=== PATIENT | female | born 1960 ===

== ENCOUNTER 2018-01-18 05:59 | Day surgery (SDC) | payer OTHER ==
[2018-01-14 09:21] VITALS: BMI 21.7
[2018-01-18] MEDS ORDERED: Lidocaine 2% w Epi 1:100,000 Inj IJ ONE ×2 (07:19→08:49)
[2018-01-18] MEDS ORDERED: Bupivacaine 0.25% Inj(30mL) ONE ×2 (07:19→07:25)
[2018-01-18] MEDS ORDERED: ceFAZolin IV 1 gm in Dextrose 1 GM/50 ML BAG IVPB ONE (07:19)
[2018-01-18] MEDS ORDERED: Lidocaine/Epinephrine 1% 1:100000 10 ML IJ ONE (07:34)
[2018-01-18] MEDS ORDERED: Midazolam 2 MG/2 ML VIAL ONE (07:35)
[2018-01-18] MEDS ORDERED: Propofol 10 mg/ml Inj (20 ML) ONE (07:35)
[2018-01-18] MEDS ORDERED: Phenylephrine 10 mg/ml Inj ONE (07:37)
[2018-01-18] MEDS ORDERED: ePHEDrine 50 mg/ml Inj ONE (07:37)
[2018-01-18] MEDS ORDERED: Rocuronium 10 mg/ml (5 ml) ONE (07:37)
[2018-01-18] MEDS ORDERED: Oxycodone/Acetaminophen 5/325 mg Tab PO PRN (09:04)
--- NOTE | 2018-01-18 09:04 | PCM.SURG1 ---
Surgeon's Initial Post Op Note - Surgeon's Notes Surgeon: Dr Cruz Instructional Manager: Dr English PGY3, Liliana CH Type of Anesthesia: General Endo Pre-Operative Diagnosis: cholelithiasis. gb polyp Operative Findings: see report Post-Operative Diagnosis: as above Operation Performed: robotic cholecystectomy Specimen/Specimens Removed: gallbladder Estimated Blood Loss: EBL {In ML}: 5 Blood Products Given: N/A Drains Used: No Drains Post-Op Condition: Good Date of Surgery/Procedure: 01/18/18 Time of Surgery/Procedure: 09:03
[2018-01-18] MEDS ORDERED: HYDROmorphone 0.5 mg/0.5 ml ISec IVP PRN (09:10)
[2018-01-18] MEDS ORDERED: HYDROmorphone 0.5 mg/0.5 ml ISec ONE (09:14)
[2018-01-18 11:13] VITALS: O2SAT 98
[2018-01-18 12:01] VITALS: RESP 16
[2018-01-18 12:23] VITALS: BP 149/75; PULSE 73; TEMP 97.8
--- NOTE | 2018-01-19 08:17 | OP ---
PROCEDURE DATE: 01/18/2018 PREOPERATIVE DIAGNOSIS: Chronic cholecystitis and cholelithiasis. POSTOPERATIVE DIAGNOSIS: Chronic cholecystitis and cholelithiasis. PROCEDURE DONE: Robotic cholecystectomy. SURGEON: Nicholas Cruz MD. HOME HEALTH SPECIALIST: DIMA Chin. Kendall phillipson, PGY 3 TYPE OF ANESTHESIA: General endotracheal tube anesthesia. ESTIMATED BLOOD LOSS: Around 10 mL. DRAINS: None. PATHOLOGY: Gallbladder was sent for the pathology. COMPLICATIONS: None. INTRAOPERATIVE FINDINGS: The patient had changes of chronic cholecystitis and cholelithiasis. DESCRIPTION OF PROCEDURE: On intraoperative steps, this is a 57-year-old female who was diagnosed with chronic cholecystitis and cholelithiasis, and the patient was consented for robotic cholecystectomy, possible open, brought to the OR, placed supine on the operating table. After induction of the anesthesia, the abdomen was prepped and draped in the usual sterile fashion. A supraumbilical transverse incision was made after incising skin, subcutaneous tissue, and the fascia. The robotic camera port was placed, and another three 8 mm robotic camera were placed, and robot was brought in. Camera arm as well as arm 1, arm 2 was docked; and the gallbladder was retracted cranially. Calot's triangle dissection was done. Cystic duct and cystic artery were identified. Intraoperative Firefly was used to identify the ductal anatomy. Cystic duct and cystic artery were clipped at 3 places and cut in between 2 clips nearby the gallbladder. Gallbladder was dissected free from the gallbladder fossa, taken in an EndoCatch bag, taken out through the umbilical port site, and sent off the table for pathology. There was proper hemostasis in each and every part of the procedure. The gallbladder was sent off the table for pathology. All the instruments were taken out, robot was undocked. All the port was taken out under vision. Pneumo was deflated. The umbilical port site was closed in 2 layers, fascia with 0-Vicryl interrupted suture, skin with a 4-0 Monocryl, and dry sterile dressing was applied. The patient tolerated the procedure well. Count of the instrument and gauze was correct. There was no apparent complication. Nicholas Cruz MD [facility]
== END 2018-01-18 12:34 | disposition home or self-care (01) ==
LOC: C.SDS 05:59
PROVIDERS: ATTEND Surgery Surgical Critical Care
DX: K80.10 Calculus of gallbladder with chronic cholecystitis without obstruction (principal); I10 Essential (primary) hypertension; M32.9 Systemic lupus erythematosus, unspecified; M06.9 Rheumatoid arthritis, unspecified; Z83.79 Family history of other diseases of the digestive system; Z80.9 Family history of malignant neoplasm, unspecified; K40.90 Unilateral inguinal hernia, without obstruction or gangrene, not specified as recurrent; K74.3 Primary biliary cirrhosis
CPT/HCPCS: 47562; 88304; J0690; J1170; J2001; J2250; J2370; J2405; J2704; J3010; J7030; S2900